=== PATIENT | male | born 1965 | race Two or more races ===

== ENCOUNTER → 2016-09-26 | Outpatient (CLI) | payer OTHER | LOC: BRMIMAGING 10:25 | PROVIDERS: ATTEND Specialist | DX: S69.91XA Unspecified injury of right wrist, hand and finger(s), initial encounter (principal); W31.2XXA Contact with powered woodworking and forming machines, initial encounter | CPT/HCPCS: 73140-PO ==

== ENCOUNTER → 2016-10-20 | Outpatient (CLI) | payer OTHER | LOC: BRMIMAGING 10:10 | PROVIDERS: ATTEND Internal Medicine | DX: S61.200A Unspecified open wound of right index finger without damage to nail, initial encounter (principal) | CPT/HCPCS: 73140-PO ==

== ENCOUNTER → 2016-11-03 | Outpatient (CLI) | payer OTHER | LOC: BRMIMAGING 08:50 | PROVIDERS: ATTEND Internal Medicine | DX: S69.91XA Unspecified injury of right wrist, hand and finger(s), initial encounter (principal) | CPT/HCPCS: 73140-PO ==